=== PATIENT | female | born 1955 | race Caucasian/White ===

== ENCOUNTER 2017-06-22 14:58 | Emergency (ER) | payer BC ==
[~2017-06-22] VITALS: Ht 170.2 cm; Wt 101.2 kg
== END 2017-06-22 17:19 | disposition home or self-care (01) ==
LOC: ER 14:58
DX: S61.220A Laceration with foreign body of right index finger without damage to nail, initial encounter (principal); W25.XXXA Contact with sharp glass, initial encounter; Y93.E9 Activity, other interior property and clothing maintenance; Y92.090 Kitchen in other non-institutional residence as the place of occurrence of the external cause; Y99.8 Other external cause status

== ENCOUNTER → 2017-06-30 | Emergency (ER) | payer BC ==
[~2017-06-30] VITALS: Ht 170.2 cm; Wt 101.2 kg
== END | disposition home or self-care (01) ==
LOC: ER 08:35
DX: Z48.02 Encounter for removal of sutures (principal)

== ENCOUNTER 2021-11-29 17:43 | Emergency (ER) | payer OTHER, BC | END 2021-11-29 22:02 | disposition home or self-care (01) | LOC: ER 17:43 | DX: S80.12XA Contusion of left lower leg, initial encounter (principal); W18.30XA Fall on same level, unspecified, initial encounter; Y93.9 Activity, unspecified; Y92.9 Unspecified place or not applicable; Y99.9 Unspecified external cause status; E11.9 Type 2 diabetes mellitus without complications; Z79.84 Long term (current) use of oral hypoglycemic drugs; I10 Essential (primary) hypertension ==

== ENCOUNTER 2024-09-19 07:21 | Emergency (ER) | payer OTHER ==
[~2024-09-19] VITALS: Ht 170.2 cm; Wt 86.2 kg
[~2024-09-19 07:21] MED LIST: AMLODIPINE-OLM1 EAC2 PO; ATORVASTATIN CA10 MG PO; GLUMETZA1000 MG PO; LOSARTAN POTASS50 MG PO; TOPROL XL25 M1 PO
[2024-09-19] MEDS ORDERED: OZEMPIC2 MG/0.75 SQ (07:31)
[2024-09-19 10:16] LABS: BASO % 0.8 % (0.1-1.2); EOS # 0.27 (0.04-0.54); EOS % 4.2 % (0.7-7.0); HEMATOCRIT 42.1 % (34.1-44.9); HEMOGLOBIN 14.2 g/dL (11.2-15.7); LYMPH # 0.93 (1.18-3.74); LYMPH % 14.5 % (19.3-53.1); MEAN CORPUSCULAR HEMOGLOBIN 29.8 pg (25.6-32.2); MONO # 0.77 (0.24-0.82); NEUT % 68.3 % (34.0-71.1); PLATELET COUNT 269 K/uL (163-369); RED BLOOD COUNT 4.76 M/uL (3.93-5.22); RED CELL DISTRIBUTION WIDTH 12.4 % (11.6-14.4)
[2024-09-19 10:48] LABS: PH,URINE 5.5 (5.0-8.0); URINE APPEARANCE Clear; URINE BILIRRUBIN Negative (NEGATIVE); URINE BLOOD Negative; URINE COLOR Yellow; URINE GLUCOSE Negative (NEGATIVE); URINE KETONE Trace (NEGATIVE); URINE LEUKOCYTE Small; URINE NITRATE Negative; URINE PROTEIN Negative (NEGATIVE)
[2024-09-19 10:51] LABS: URINE BACTERIA 53.8 uL (0.0-1933); URINE EPITHELIAL CELLS 9.6 uL (0.0-38.8); URINE RBC 12.6 uL (0.0-20.8); URINE WBC 91.1 uL (0.0-23.2)
[2024-09-19 11:38] LABS: URINE CAST 0.29 uL (0.0-1.40)
[2024-09-19 11:39] LABS: URINE CRYSTALS MODERATE /HPF
[2024-09-19 11:47] LABS: ALBUMIN 3.8 gm/dL (3.4-5.0); BILIRUBIN TOTAL 0.58 mg/dL (0.3-1.2); CREATININE SERUM 0.7 mg/dL (0.55-1.02); GFR 82.97; GLOBULINA 3.4 G/DL (2.4-3.5); POTASSIUM 4.25 mEq/L (3.5-5.1); TOTAL PROTEIN 7.2 gm/dL (6.4-8.2)
[2024-09-19] MEDS ORDERED: KETOROLAC TROMETHAMINE 60 MG VIAL IM ONE ×2 (12:45→13:01)
[2024-09-19] MEDS ORDERED: ORPHENADRINE CITRATE 30 MG/ML AMPUL IM ONE (12:45)
[2024-09-19] MEDS ORDERED: DEXAMETHASONE SODIUM PHOSPHATE 4 MG/ML VIAL IM ONE (12:45)
[2024-09-19] MEDS ORDERED: MACROBID 100 M100 MG PO (12:48)
[2024-09-19] MEDS ORDERED: DICLOFENAC SODI75 MG PO (12:48)
[2024-09-19] MEDS ORDERED: BACLOFEN10 MG PO (12:48)
[2024-09-19] MEDS ORDERED: DEXAMETHASONE SODIUM PHOSPHATE 4 MG/ML VIAL ONE (13:01)
[2024-09-19] MEDS ORDERED: ORPHENADRINE CITRATE 30 MG/ML AMPUL ONE (13:01)
== END 2024-09-19 13:15 | disposition home or self-care (01) ==
LOC: ER 07:32
PROVIDERS: Preventive Medicine Public Health & General Preventive Medicine
DX: M75.51 Bursitis of right shoulder (principal); N39.0 Urinary tract infection, site not specified; M54.50 Low back pain, unspecified; I10 Essential (primary) hypertension; E11.9 Type 2 diabetes mellitus without complications; Z79.84 Long term (current) use of oral hypoglycemic drugs
CPT/HCPCS: 36415; 96372; 99282; J1100; J1885; J2360

== ENCOUNTER 2024-09-22 13:50 | Outpatient (CLI) | payer OTHER ==
[~2024-09-22 13:50] MED LIST changes: +BACLOFEN10 MG PO; +DICLOFENAC SODI75 MG PO; +MACROBID 100 M100 MG PO; +OZEMPIC2 MG/0.75 SQ
== END 2024-09-22 13:55 | disposition home or self-care (01) ==
LOC: SONOGRAMA 13:50
PROVIDERS: ATTEND Specialist
DX: N20.0 Calculus of kidney (principal)

== ENCOUNTER 2024-09-26 14:28 | Outpatient (CLI) | payer OTHER, BC ==
[2024-09-26 15:08] LABS: URINE APPEARANCE Cloudy; URINE BILIRRUBIN Small (NEGATIVE); URINE BLOOD Negative; URINE COLOR Dark Yellow; URINE GLUCOSE Negative (NEGATIVE); URINE KETONE Trace (NEGATIVE); URINE LEUKOCYTE Moderate; URINE NITRATE Negative; URINE PROTEIN 30 (NEGATIVE)
[2024-09-26 15:10] LABS: URINE BACTERIA 2868.9 uL (0.0-1933); URINE CAST 7.65 uL (0.0-1.40); URINE EPITHELIAL CELLS 80.9 uL (0.0-38.8); URINE RBC 69.8 uL (0.0-20.8); URINE WBC 496.3 uL (0.0-23.2)
[2024-09-26 15:31] LABS: TYPE CELLS SQUAMOUS; URINE CRYSTALS MANY /HPF
== END 2024-09-26 14:33 | disposition home or self-care (01) ==
LOC: LAB 14:28
PROVIDERS: ATTEND Specialist
DX: N39.0 Urinary tract infection, site not specified (principal); N39.9 Disorder of urinary system, unspecified

== ENCOUNTER 2024-09-27 07:34 | Outpatient (CLI) | payer OTHER, BC ==
[2024-09-28] MEDS ORDERED: COZAAR100 MG PO (00:59)
[2024-09-28] MEDS ORDERED: LOSARTAN POTASSI1 GM MC (00:59)
== END 2024-09-27 07:36 | disposition home or self-care (01) ==
LOC: TOM 07:34
PROVIDERS: ATTEND Specialist
DX: N28.89 Other specified disorders of kidney and ureter (principal); K63.89 Other specified diseases of intestine
CPT/HCPCS: 74177; Q9965

== ENCOUNTER 2024-09-28 00:47 | Emergency (ER) | payer OTHER, BC ==
[~2024-09-28] VITALS: Ht 170.2 cm; Wt 86.2 kg
[2024-09-28 00:57] VITALS: BP 184/84; O2SAT 98
[2024-09-28] MEDS ORDERED: LOSARTAN POTASSI1 GM MC (00:59)
[2024-09-28] MEDS ORDERED: COZAAR100 MG PO (00:59)
[2024-09-28] MEDS ORDERED: 0.9 % SODIUM CHLORIDE 1,000 ML IV STA (02:30)
[2024-09-28] MEDS ORDERED: KETOROLAC TROMETHAMINE 30 MG VIAL IV STA (02:30)
[2024-09-28] MEDS ORDERED: CIPROFLOXACIN IN 5 % DEXTROSE 400 MG/200 ML PIGGYBAG IV STA (02:31)
[2024-09-28] MEDS ORDERED: TRAMADOL HCL 50 MG TABLET PO STA (02:31)
[2024-09-28] MEDS ORDERED: KETOROLAC TROMETHAMINE 30 MG VIAL ONE (02:56)
[2024-09-28] MEDS ORDERED: CIPROFLOXACIN IN 5 % DEXTROSE 400 MG/200 ML PIGGYBAG IV ONE (02:56)
[2024-09-28 03:25] LABS: BASO % 0.5 % (0.1-1.2); EOS # 0.29 (0.04-0.54); EOS % 3.6 % (0.7-7.0); HEMATOCRIT 40.5 % (34.1-44.9); HEMOGLOBIN 13.9 g/dL (11.2-15.7); LYMPH # 0.94 (1.18-3.74); LYMPH % 11.8 % (19.3-53.1); MEAN CORPUSCULAR HEMOGLOBIN 29.8 pg (25.6-32.2); MONO # 1.22 (0.24-0.82); MONO % 15.3 % (4.7-12.5); NEUT # 5.44 (1.56-6.13); NEUT % 68.5 % (34.0-71.1); PLATELET COUNT 263 K/uL (163-369); RED BLOOD COUNT 4.66 M/uL (3.93-5.22); RED CELL DISTRIBUTION WIDTH 12.5 % (11.6-14.4)
[2024-09-28 04:25] LABS: ALBUMIN 3.6 gm/dL (3.4-5.0); BILIRUBIN TOTAL 0.72 mg/dL (0.3-1.2); CALCIUM 9.5 mg/dL (8.5-10.1); CREATININE SERUM 0.67 mg/dL (0.55-1.02); GFR 87.27; GLOBULINA 3.1 G/DL (2.4-3.5); POTASSIUM 4.93 mEq/L (3.5-5.1); TOTAL PROTEIN 6.7 gm/dL (6.4-8.2)
[2024-09-28 06:14] LABS: URINE APPEARANCE Clear; URINE BILIRRUBIN Negative (NEGATIVE); URINE BLOOD Negative; URINE COLOR Yellow; URINE GLUCOSE Negative (NEGATIVE); URINE KETONE Negative (NEGATIVE); URINE LEUKOCYTE Moderate; URINE NITRATE Negative; URINE PROTEIN Negative (NEGATIVE)
[2024-09-28 06:17] LABS: URINE BACTERIA 296.1 uL (0.0-1933); URINE EPITHELIAL CELLS 17.7 uL (0.0-38.8); URINE RBC 5.7 uL (0.0-20.8); URINE WBC 158.4 uL (0.0-23.2)
== END 2024-09-28 06:56 | disposition home or self-care (01) ==
LOC: ER 01:29
DX: N39.0 Urinary tract infection, site not specified (principal); M54.50 Low back pain, unspecified; I10 Essential (primary) hypertension
CPT/HCPCS: 36415; 96365; 96366; 99283; J0744; J1885; J3490